=== PATIENT | male | born 1955 | race Caucasian/White ===

== ENCOUNTER 2021-05-07 14:50 | Emergency (ER) | payer OTHER, SELFPAY ==
[2021-05-07 14:52] VITALS: BP 122/80; PULSE 82; RESP 16; TEMP 36.5; O2SAT 90; BMI 24.4
--- NOTE | 2021-05-07 15:40 | EX.ED.DYSGE1 ---
HPI History of Present Illness Chief Complaint: General Illness Informant: patient Onset/Context/Timing Onset: Weeks Context: Gradual Onset Timing: Continuous Current Severity: Mild Maximum Severity: Mild Narrative Narrative: 66-year-old male history of kidney stones prior testicular cancer 40 years ago and hypertension. States that he has not felt well for about the last 3 weeks. He had a cough with clear sputum some mild diarrhea. Denies any hemoptysis. He is not short of breath. He has had nausea but no vomiting. He denies any dysuria. He has had chills really has not thought he had much of a fever. Says his is currently hospitalized with COVID and he is unvaccinated for COVID. Prior similar symptoms: No Recent Illness/Hospitalization: No PFSH PFSH Medical History (Updated 05/07/21 @ 18:[address] Ej Renteria MD) HTN (hypertension) Kidney stone Testicular cancer Home Medications allopurinol 05/07/21 [History Last Taken Unknown] losartan 05/07/21 [History Last Taken Unknown] ondansetron 4 mg PO Q6H PRN #7 tab 05/07/21 [Rx Last Taken Unknown] pravastatin 05/07/21 [History Last Taken Unknown] Allergy/AdvReac Type Severity Reaction Status Date / Time No Known Allergies Allergy Verified 05/07/21 15:41 Social History Smoking Status: Never smoker ROS ROS ED ROS Narrative Nausea, malaise and cough. Also diarrhea. Review of Systems ROS Unobtainable: Denies due to encephalopathy Constitutional Constitutional ED: Reports chills; Denies fever(s) Eyes Eyes: Denies change in vision ENT ENT ED: Denies ear pain, rhinorrhea or sore throat Cardiovascular Cardiovascular: Denies chest pain or palpitations Respiratory/Chest Respiratory/Chest: Reports cough and sputum; Denies dyspnea Gastrointestinal Gastrointestinal: Reports diarrhea and nausea; Denies abdominal pain or vomiting Genitourinary Genitourinary ED: Denies dysuria Musculoskeletal Musculoskeletal: Reports myalgias Integumentary Denies rash Neurologic Neurologic: Denies headache(s) Psychiatric Psychiatric: Denies depression Endocrine Endocrinology: Denies polyuria Allergic/Immunologic Allergic/Immunologic ED: Denies urticaria EXAM Physical Exam Narrative Exam Narrative: 66-year-old male sitting upright in bed no distress. HEENT exam is unremarkable. Pulse ox 90% on room air no hypoxia. Temperature 97.7. He does not look septic or toxic. HEENT exam unremarkable. Moist mucous membranes. Posterior pharynx normal. Neck nontender no lymphadenopathy. Lungs clear to auscultation bilaterally. Heart regular rhythm rate about 80 no murmur. Chest wall nontender. Abdomen soft nontender. Moving all 4 extremities. Calves are nontender. Normal strength. Neurologically is awake and alert with no focal motor deficits. Const Vital Signs: 05/07/21 14:52 05/07/21 15:43 05/07/21 17:06 Temperature 97.7 F L 98.9 F 97.9 F Temperature Source Temporal Temporal Temporal Pulse Rate 82 64 65 Respiratory Rate 16 18 16 Respiratory Effort Normal Respiratory Pattern Normal Blood Pressure 122/80 H 116/75 114/76 Blood Pressure Mean 94 88 88 Pulse Ox 90 95 92 Oxygen Delivery Method Room Air Room Air Room Air Positive well nourished and well developed; Negative for obese, cachectic, contractures or unkempt General Appearance ED: well developed and NAD; Negative for unkempt, cachectic, contractures, cyanotic, diaphoretic or pallor Nutritional Appearance: Negative for cachectic or obese HEENT Reports moist mucous membranes Negative for trauma or tenderness Eyes PERRL and EOMs intact bilaterally Neck no lymphadenopathy, supple and no JVD General: Negative for tenderness Chest Wall inspection of chest normal and palpation of chest normal Resp normal respiratory effort and clear to auscultation bilaterally Effort and Inspection: pain with movement Auscultation: Negative for rales, rhonchi, wheezes or diminished lung sounds Cardio regular rate, regular rhythm, S1 normal heart sound, S2 normal heart sound and no murmurs GI normal to inspection, nondistended, normoactive bowel sounds, non-tender, non-distended and no masses Inspection: Negative for abdominal distention Auscultation: normoactive bowel sounds Palpation: soft; Negative for tender, guarding or rebound tenderness present Back/Spine no CVA tenderness General Back: Negative for CVA tenderness Cervical Spine: Negative for cervical spine tenderness Thoracic Spine / Upper Back: Negative for thoracic spinal tenderness or paraspinal muscle tenderness Lumbar Spine / Lower Back: Negative for lumbar spinal tenderness Extremity normal to inspection General Extremety ED: Negative for edema or tenderness General Extremity: Negative for edema Neuro oriented x3 and CN's II-XII intact bilaterally Sensorium / Orientation: alert; Negative for orientation impaired, lethargic or stuporous Motor Exam: strength 5/5 throughout Psych mental status grossly normal Appearance: Negative for unkempt Attitude: No agitated Mood & Affect: Negative for depressed, anxious or tearful Skin no rashes or lesions noted and no wounds General Skin Exam: Negative for jaundice or pallor MDM MDM MDM Narrative Medical decision making narrative: 66-year-old male is hospitalized currently with COVID. He has not felt well for about 3 weeks. Exam is benign. Receive IV fluids have a COVID test and some screening labs and a chest x-ray. I will be treated with a liter normal saline and IV Zofran for his nausea. Repeat exam patient is doing well in 6:25 PM. He and I discussed his test results. Clinically I think this is resolving COVID. His was positive. He has never been tested. His symptoms been for nearly 3 weeks of the rapid antigen may be falsely negative. Recent we will send a PCR. Clinically he is doing well. His vital signs are stable and he will be discharged to home. Lab Data Attestation: I reviewed the patient's lab results. Lab results narrative: CBC normal white count of 4. Hemoglobin 13.5. Hematocrit 40. Platelets 235. Electrolytes Testament 3.2. Gap 11. Normal BUN and creatinine. Normal liver enzymes. Labs: Laboratory Results - last 24 hr 05/07/21 05/07/21 15:53 15:53 WBC 4.9 RBC 4.69 Hgb 13.5 Hct 40.1 MCV 85.5 MCH 28.8 MCHC 33.7 RDW Std Deviation 39.8 RDW Coeff of Lori 12.8 Plt Count 235 MPV 9.1 Sodium 136 Potassium 3.2 L Chloride 97 L Carbon Dioxide 28.0 Anion Gap 11 BUN 12 Creatinine 0.88 Estim Creat Clear Calc 93.32 Est GFR (MDRD) Af Amer 111 Est GFR (MDRD) Non-Af 92 BUN/Creatinine Ratio 13.6 Glucose 103 Calcium 8.3 L Total Bilirubin 0.80 AST 35 ALT 27 Alkaline Phosphatase 80 Total Protein 6.5 Albumin 3.1 L Globulin 3.4 Albumin/Globulin Ratio 0.9 Radiography Chest X-Ray - ED: 1 View, Read by ED Physician, Normal, Heart, Mediastinum, Bony Structures, Right Infiltrate and Left Infiltrate Diagnostic Testing: Clinical Impression(s) from Imaging Studies Chest X-Ray 05/07/21 16:12 IMPRESSION: Bilateral pneumonia. Electronically Signed: Curtis Rapp MD at 16:27 EST , Service support , Febrile chest x-ray shows bilateral lower lobe infiltrates consistent with resolving COVID pneumonitis. Interpreted by myself and radiologist. Discharge Plan Triage Chief Complaint: General Illness ED Provider: Ej Renteria Dx/Rx/DC Orders Clinical Impression: COVID-19 Instructions: Human Coronaviruses Prescriptions: New ondansetron 4 mg tablet,disintegrating 4 mg PO Q6H PRN (Reason: nausea and vomiting) Qty: 7 RF: 0 No Action allopurinol RF: 0 losartan RF: 0 pravastatin RF: 0 Primary Care Provider: Marcellus Palomo NP Referrals: Marcellus Palomo PUBLIC TRANSPORTATION INSPECTOR, PUBLIC TRANSPORTATION INSPECTOR-C [Primary Care Provider] - 1 Week if not improving Activity Restrictions/Additional Instructions: Plenty fluids and rest. Tylenol for body aches and any fevers. Zofran as needed for nausea. Follow-up with your doctor if not improving. Given your symptoms and your 's diagnosis clinically I think this is COVID in spite of your rapid antigen being negative. We will send off a PCR COVID test. Disposition Disposition: Home, Self Care
[2021-05-07 15:43] VITALS: BP 116/75; PULSE 64; RESP 18; TEMP 37.2; O2SAT 95
--- NOTE | 2021-05-07 16:12 | RAD_ITS ---
STUDY: X-RAY CHEST REASON FOR EXAM: Male, 66 years old. Technologist Notes PT NOT FEELING WELL COUGH SOB FATIGUE CANT EAT OR DRINK cough TECHNIQUE: XR Chest 1 View COMPARISON: Prior comparison studies are not available for review at this time. FINDINGS: There is no demonstrated pleural abnormality. There is bilateral infiltrate. Normal size heart. Normal mediastinum and raghu. Normal visualized pulmonary arteries. There is atherosclerotic calcification of the aortic arch with tortuosity. There are diffuse degenerative changes of the visualized thoracic spine. There is degenerative osteoarthritis of the bilateral shoulders. There is no demonstrated abnormality of the visualized soft tissue structures of the upper abdomen. RAD/Chest 1 View (Portable) IMPRESSION: Bilateral pneumonia. Electronically Signed: Curtis Rapp MD at 16:27 EST , Service support ,
[2021-05-07 16:27] LABS: Hematocrit 40.1 % (40-54); Hemoglobin 13.5 g/dL (13.0-16.5); Mean Corp Hgb Conc 33.7 g/dL (32-36); Mean Corpuscular Hgb 28.8 pg (27.0-32.0); Mean Corpuscular Volume 85.5 fL (80-94); Mean Platelet Vol. 9.1 fl (6.2-12.0); Platelet Count 235 K/mm3 (150-450); RBC Distribution Width CV 12.8 % (11.6-14.6); RBC Distribution Width SD 39.8 fl (35.1-43.9); Red Blood Count 4.69 M/mm3 (4.6-6.2); White Blood Count 4.9 K/mm3 (4.4-11.0)
[2021-05-07 16:34] LABS: ALB/GLOB Ratio 0.9 RATIO (0.9-2.4); AST(SGOT) 35 U/L (15-37); Alanine Aminotransfer ALT/SGPT 27 U/L (16-61); Albumin, Serum 3.1 g/dL (3.2-5.0); Alkaline Phosphatase 80 U/L (45-117); Anion Gap 11 (5-15); BUN 12 mg/dL (7-18); BUN/Creat Ratio 13.6 RATIO (10-20); Calcium,Total 8.3 mg/dL (8.5-10.1); Chloride 97 mmol/L (98-107); Creatinine, Serum 0.88 mg/dL (0.70-1.30); EST Glomerular Filtration Rate 92 mL/min (>60); Est Glom Filt Rate - Afr Amer 111 mL/min (>60); Estimated Creatinine Clearance 93.32 ml/min; Globulin 3.4 g/dL (2.2-4.2); Glucose 103 mg/dL (74-106); Potassium 3.2 mmol/L (3.5-5.1); Protein, Total 6.5 g/dL (6.4-8.2); Sodium Level 136 mmol/L (136-145)
[2021-05-07] MEDS: Ondansetron 4 MG/2 ML Vial IV (17:05)
[2021-05-07] MEDS: 0.9% Normal Saline 1,000 ML 1000 ML IV (17:05)
[2021-05-07 17:06] VITALS: BP 114/76; PULSE 63; PULSE 65; RESP 16; TEMP 36.6; O2SAT 91; O2SAT 92
[2021-05-07 18:11] LABS: Mucous, Urine 0 SEEN /hpf (<or=2+); Squamous Epithelial Cells - UA 0 SEEN /hpf (0-5); White Blood Cells 0 SEEN /hpf (0-5)
[2021-05-07 18:24] LABS: Color, Urine Yellow (Yellow); Glucose, Dipstick Normal (Normal); Ketone-Dipstick 5 mg/dl (Negative); Leukocyte Esterase-Dipstick Negative /ul (Negative); Nitrite-Dipstick Negative (Negative); Protein-Dipstick 15 mg/dl (Negative); Urine Bilirubin Dipstick Negative (Negative); Urine Clarity Clear (Clear); Urine Urobilinogen 4 mg/dl (Normal); Urine pH 6.5 (5.0 - 8.0)
[2021-05-07 18:46] LABS: Occult Blood-Urine 25 /ul (Negative)
[2021-05-07 18:47] VITALS: BP 114/76; PULSE 65; RESP 17; O2SAT 91
[2021-05-07 19:14] LABS: Red Blood Cells-Urine 0-5 SEEN /hpf (0-5)
[2021-05-07 19:42] VITALS: BP 110/59; PULSE 88; RESP 16; TEMP 36.9; O2SAT 97
== END 2021-05-07 19:43 | disposition home or self-care (01) ==
PROVIDERS: Emergency Provider Emergency Medicine; PCP Nurse Practitioner Family; Visit Provider Emergency Medicine
DX: U07.1 COVID-19 (principal); I10 Essential (primary) hypertension; Z85.47 Personal history of malignant neoplasm of testis; Z87.442 Personal history of urinary calculi; Z79.899 Other long term (current) drug therapy
CPT/HCPCS: 71045; 80053; 81001; 85027; 87426; 87635; 96361; 96374; 99284; J7030; A4216; J2405; U0003; U0005